=== PATIENT | male | born 1995 | race Caucasian/White ===

== ENCOUNTER 2019-05-19 11:37 | Emergency (ER) | payer SELFPAY ==
[~2019-05-19] VITALS: Ht 152.4 cm; Wt 75.0 kg
[2019-05-19] MEDS ORDERED: IBUPROFEN 600MG TABLET PO ONE (12:30)
[2019-05-19 13:55] VITALS: BP 118/54
== END 2019-05-19 14:01 | disposition home or self-care (01) ==
LOC: ER 11:37
DX: M79.671 Pain in right foot (principal); R03.0 Elevated blood-pressure reading, without diagnosis of hypertension
CPT/HCPCS: 73630; 99283